=== PATIENT | female | born 1970 | race Caucasian/White ===

== ENCOUNTER → 2016-12-01 | Outpatient (CLI) | payer BC ==
[~2016-12-01] MED LIST: ENBREL50 MG/ML IM/IV; IBUPROFEN800 MG PO; MACROBID100 MG PO; MOTRIN400 MG PO; SILVADENE CREAM TOP
--- NOTE | ~2016-12-01 | MR112 ---
[facility] A Service of [facility] & [facility] RADIOLOGY TEXT RESULTS PATIENT: BOBBI BECKMAN LOCATION: [facility] : 74 UNIT #: [id number] AGE: [address]: Oni Cleveland MD SEX: F ORDER DR: [id number] [address] [address] [id number] O MR#: [id number] Acc #: [id number] NAME: BOBBI BECKMAN : 1970 SEX: F STUDY DATE/TIME: 12/01/2016 10:11 UNIT: [facility] ROOM: STUDY DESCRIPTION: MR Lumbar WWo Contrast Attending Physician: Oni Cleveland M.D. Referring Physician: Oni Cleveland M.D. Ordering Physician: Oni Cleveland M.D. Primary Care Physician: Musa Cain M.D. MRI CENTER REPORT This report is preliminary unless electronic signature is present. EXAM MRI of the lumbar spine with and without contrast dated 12/01/2016. COMPARISON MRI lumbar spine without contrast dated 04/03/2015. HISTORY Low back pain for 3 weeks. Symptoms are different than before surgery in June 2015. Increased stiffness and decreased range of movement is seen. TECHNIQUE Multisequence multiplanar imaging of the lumbar spine was obtained with and without contrast. 19 mL of MultiHance was administered intravenously. FINDINGS Vertebral body heights are preserved. There is mild retrolisthesis of L5 with respect to L4 x 4 mm. There is an 8.5 x 8.5 x 13 mm nonenhancing cystic lesion in the L4 vertebral body along the mid aspect, stable in the last 1 and 1/2 years favoring benignity. Also seen are non-enhancing sacral perineural cysts bilaterally, stable. Degenerative disc signal loss is at L4-5, L5-S1 and L2-3. Conus terminates at T12-L1. Signal of conus and cauda equina are within normal limits. Pre and paravertebral soft tissues do not demonstrate any significant abnormality. L1-2: Mild bilateral facet hypertrophic changes and bilateral less than 1 cm perineural cysts. No canal stenosis or neural foraminal narrowing. L2-3: Mild disc bulge which is slightly prominent in bilateral foraminal to extraforaminal regions suggestive of broad-based protrusions. It is worse on the right suggestive of small extruded component. It is stable to slightly decreased when compared to the prior study. Mild to moderate right and mild left neural foraminal narrowing is seen with impingement of exiting right L2 nerve root. Mild bilateral facet hypertrophic changes [facility] A Service of [facility] RADIOLOGY TEXT RESULTS PATIENT: BOBBI BECKMAN LOCATION: [facility] : 74 UNIT #: [id number] AGE: [address]: Oni Cleveland MD SEX: F ORDER DR: and mild canal stenosis are redemonstrated. Previously seen mild right lateral recess stenosis has slightly improved. L3-4: Concentric disc bulge with mild bilateral neural foraminal narrowing. Mild bilateral facet changes are noted with mild canal stenosis. L4-5: Postoperative changes are noted with posterior decompression. Concentric disc bulge is seen with severe left and moderate right facet hypertrophic change with [id number] bilateral neural foraminal narrowing and mild mass effect on the thecal sac. There is significant improvement in the canal stenosis when compared to the prior study. L5-S1: Postoperative changes of posterior decompression is extending to the L5-S1 level. Concentric disc bulge is seen with enhancing granulation tissue in the left central region and left subarticular region. [id number] bilateral facet hypertrophic changes are noted with mild bilateral neural foraminal narrowing. There is improvement in the mass effect on the thecal sac. Mild to moderate bilateral stable facet hypertrophic changes and mild bilateral neural foraminal narrowing are present. IMPRESSION 1. Posterior decompression changes are at L4-5 and L5-S1 with interval improvement in the mass effect on the thecal sac when compared to the prior study. 2. Disc disease is redemonstrated with at L2-3 with stable to slight improvement in the right foraminal to extraforaminal moderate broad-based protrusion/small extrusion. There is still impingement on the exiting right L2 nerve root. 3. Perineural cysts are noted at multiple levels of the lumbar and sacral nerves as described above, benign. 4. Stable nonenhancing 1.3 cm L4 vertebral body lesion is seen, likely a simple cyst. Stable. Dictated by... Saida Sharpe M.D. THIS IS AN ELECTRONICALLY VERIFIED REPORT Saida Sharpe M.D. at 12/02/2016 4:57 PM DEANDRE/marisel TD: 12/01/2016 15:08 JOB #: [id number] MRI CENTER REPORT
--- NOTE | ~2016-12-01 | CR182 ---
[facility] A Service of [facility] RADIOLOGY TEXT RESULTS PATIENT: BOBBI BECKMAN LOCATION: [facility] : 74 UNIT #: [id number] AGE: [address]: Oni Cleveland MD SEX: F ORDER DR: [id number] [address] [address] [id number] O MR#: [id number] Acc #: [id number] NAME: BOBBI BECKMAN : 1970 SEX: F STUDY DATE/TIME: 12/01/2016 11:05 UNIT: [facility] ROOM: STUDY DESCRIPTION: CR Lumbar Spine Bending Only 2 Attending Physician: Oni Cleveland M.D. Referring Physician: Oni Cleveland M.D. Ordering Physician: Oni Cleveland M.D. Primary Care Physician: Musa Cain M.D. MEDICAL IMAGING REPORT This report is preliminary unless electronic signature is present. EXAM Lumbar series, 12/01/2016 INDICATIONS 46-year-old female with low back pain for a couple weeks. Back surgery June 17. Previous spine surgery in June. TECHNIQUE Frontal flexion and extension views of the lumbar spine were performed. COMPARISON Lumbar MRI, 12/01/2016 FINDINGS There are apparent laminectomy changes of L4 and L5. Vertebral body heights are maintained. There is grade 1 antegrade listhesis of L4 with respect to L5 in both flexion and extension without significant instability on flexion or extension. There is mild degenerative disc disease at L4-5 and L5-S1. Vertebral body heights are maintained. Mild facet arthropathy at L5-S1. IMPRESSION 1. Flexion and extension views demonstrate persistent antegrade listhesis of L4 with respect to L5 grade 1 in degree. 2. Postoperative changes of L4-5 related to prior laminectomy. 3. No acute fracture. Mild degenerative changes. Dictated by... Be Mao M.D. THIS IS AN ELECTRONICALLY VERIFIED REPORT Be Mao M.D. at 12/02/2016 7:18 AM [facility] A Service of [facility] RADIOLOGY TEXT RESULTS PATIENT: BOBBI BECKMAN LOCATION: [facility] : 74 UNIT #: [id number] AGE: [address]: Oni Cleveland MD SEX: F ORDER DR: BOB/tracy TD: 12/01/2016 17:58 JOB #: [id number] MEDICAL IMAGING REPORT
== END | disposition home or self-care (01) ==
LOC: SMRI 09:46
DX: M43.16 Spondylolisthesis, lumbar region (principal); M47.816 Spondylosis without myelopathy or radiculopathy, lumbar region; Z98.890 Other specified postprocedural states
CPT/HCPCS: 72120; 72158; A9581

== ENCOUNTER → 2017-02-21 | Outpatient (CLI) | payer BC ==
--- NOTE | ~2017-02-21 | MY11 ---
[facility] A Service of [facility] & [facility] RADIOLOGY TEXT RESULTS PATIENT: BOBBI BECKMAN LOCATION: [facility] : 74 UNIT #: [id number] AGE: [address]: Musa Cain MD SEX: F ORDER DR: [id number] [facility] [address] [place], [place] [address] [id number] O MR#: [id number] Acc #: [id number] NAME: BOBBI BECKMAN : 1970 SEX: F STUDY DATE/TIME: 02/21/2017 13:43 UNIT: [facility] ROOM: STUDY DESCRIPTION: MY Mammogram Screening Dig Shahid Attending Physician: Musa Cain M.D. Ordering Physician: Musa Cain M.D. Primary Care Physician: Musa Cain M.D. MEDICAL IMAGING REPORT This report is preliminary unless electronic signature is present EXAM Mild digital screening mammogram CAD, 02/21/2017 HISTORY No personal or family history of breast cancer or current complaints. COMPARISON Bilateral screening mammogram 02/03/2016, 07/08/2014. Bilateral diagnostic mammogram 08/09/2014. FINDINGS CC and MLO views were obtained of each breast utilizing digital technique and reviewed with an FDA-approved CAD device. Extremely dense fibroglandular tissue is present bilaterally which can limit sensitivity of mammography. Two round [id number] partially circumscribed, partially obscured nodules are seen measuring about 2.0 cm each in the upper outer left breast, and are not thought to be significantly changed when compared to prior exam. Oval partially obscured nodule within the upper outer right breast likewise appears stable. These findings are thought to correspond to previous bilateral breast ultrasound findings from 08/09/2014 documenting the presence of 2 benign and single right breast cysts in the upper outer quadrants. No new nodule is seen. No architectural distortion or clustered microcalcification is identified. No abnormal skin thickening or nipple retraction. IMPRESSION Rounded partially obscured nodular densities in the upper outer quadrants of each breast appears stable since the previous mammogram and correspond to benign-appearing cyst seen on the August 2014 ultrasound. There are no new features to suggest malignancy. Routine bilateral screening STS. [facility] A Service of [facility] & [facility] RADIOLOGY TEXT RESULTS PATIENT: BOBBI BECKMAN LOCATION: [facility] : 74 UNIT #: [id number] AGE: [address]: Musa Cain MD SEX: F ORDER DR: mammogram is recommended in one year. Patients over the age of 40 are entered into a reminder system with target due date for the next mammogram. A result letter will also be sent to the patient. BIRADS: 2 Benign Finding Dictated by... Earline Smith M.D. THIS IS AN ELECTRONICALLY VERIFIED REPORT Earline Smith M.D. at 02/24/2017 8:30 AM [place] TD: 02/21/2017 15:46 JOB #: [id number] MEDICAL IMAGING REPORT Page 1 of 1 COPY
== END | disposition home or self-care (01) ==
LOC: CWCC 13:19
DX: Z12.31 Encounter for screening mammogram for malignant neoplasm of breast (principal); N60.02 Solitary cyst of left breast; N60.01 Solitary cyst of right breast
CPT/HCPCS: G0202